=== PATIENT | male | born 1990 | race Two or more races ===

== ENCOUNTER → 2023-04-30 | Outpatient (REF) | LOC: M PLAIMG 09:52 | PROVIDERS: ATTEND Internal Medicine | DX: R52 Pain, unspecified (principal) ==

== ENCOUNTER → 2023-05-24 | Outpatient (CLI) | payer OTHER ==
[~2023-05-24] MED LIST: ACET1TAB55; D 50CAP2; EPIN0.154 IM; GABA-282; IBUP-359; ZONI50CA11
== END ==
LOC: M RAD 14:10
PROVIDERS: ATTEND Internal Medicine Hematology & Oncology
DX: D70.9 Neutropenia, unspecified (principal)

== ENCOUNTER → 2023-10-02 | Outpatient (CLI) | payer OTHER ==
[2023-10-02 13:32] LABS: HEMATOCRIT 39.2 % (42.0-52.0); HEMOGLOBIN 13.3 g/dl (13.5-17.5); MEAN CORPUSCULAR HEMOGLOBIN 29.8 pg (27.0-33.0); MEAN CORPUSCULAR HGB CONC 33.9 g/dl (32.0-36.5); MEAN CORPUSCULAR VOLUME 87.9 fl (80.0-96.0); PLATELET COUNT, AUTOMATED 212 10^3/uL (150-450); RED BLOOD COUNT 4.46 10^6/uL (4.30-6.10); WHITE BLOOD COUNT 2.8 10^3/uL (4.0-10.0)
[2023-10-02 13:50] LABS: ALKALINE PHOSPHATASE 57 U/L (46-116); ALT/SGPT 16 U/L (7.0-40); AST/SGOT 22 U/L (<34); BILIRUBIN,DIRECT 0.2 MG/DL (<0.4); BILIRUBIN,TOTAL 0.6 MG/DL (0.3-1.2); TOTAL PROTEIN 7.1 G/DL (5.7-8.2)
[2023-10-02 13:52] LABS: HEPATITIS B SURFACE ANTIBODY POSITIVE (POSITIVE)
[2023-10-02 14:04] LABS: HEPATITIS B SURFACE ANTIGEN NEGATIVE (NEGATIVE)
== END ==
LOC: M LAB 12:22
PROVIDERS: ATTEND Internal Medicine Infectious Disease
DX: Z22.7 Latent tuberculosis (principal); Z11.59 Encounter for screening for other viral diseases

== ENCOUNTER → 2024-09-12 | Outpatient (CLI) | payer OTHER ==
[~2024-09-12] MED LIST changes: +GABA-1172; -GABA-282; +ISOVUE-370 76% 100 ML VIAL As Ordered ONE
== END ==
LOC: M RAD 15:55
DX: D70.9 Neutropenia, unspecified (principal)
CPT/HCPCS: 71260; 74177; Q9967